=== PATIENT | male | born 1940 | race Caucasian/White ===

== ENCOUNTER → 2019-03-31 14:24 | Outpatient (CLI) | payer MEDICARE, SELFPAY ==
--- NOTE | 2019-03-31 | DI.CT.S_ITS ---
PROCEDURE: CT ABDOMEN WO/W CON INDICATIONS: Personal history of malignant neoplasm of bladder TECHNIQUE: Optional 5 mm thick noncontrast images acquired from the diaphragm to the iliac crests. After the administration of intravenous contrast, 5 mm thick images again acquired from the diaphragm to the iliac crests in the arterial and urographic phases. 5 mm thick coronal and sagittal reformats were then acquired. For radiation dose reduction, the following was used: automated exposure control, adjustment of mA and/or kV according to patient size. COMPARISON: None. FINDINGS: Image quality: Excellent. Lung bases: Lung bases are clear. Heart size is normal. Genitourinary: Kidneys demonstrate normal size and overall enhancement. An exophytic renal cyst is present off the lower pole the right kidney. No suspicious hypervascular renal mass lesions. No hydronephrosis or nephrolithiasis. No abnormal filling defects within the visualized portions of the renal collecting systems. Other solid organs: Liver is normal in size and enhancement. Simple hepatic cystic lesions are present within the right hepatic lobe. Gallbladder is mildly contracted. Biliary system is non dilated. Pancreas enhances normally. Spleen is normal in size and enhancement. No adrenal nodules. Peritoneum and bowel: Unenhanced bowel loops are normal in wall thickness and caliber. No free fluid or air. Nodes and vessels: No retroperitoneal or mesenteric adenopathy by size criteria. Aorta and inferior vena cava are normal in caliber. Scattered atheromatous calcifications are present within the abdominal aorta. Bones: No suspicious bony lesions. No vertebral body compression fractures. Degenerative changes are present within the thoracolumbar spine. Miscellaneous: No ventral hernias. IMPRESSION: 1. No suspicious renal mass lesions. Dictated by: Maria C Curran M.D. on 03/31/2019 at 17:23 Approved by: Maria C Curran M.D. on 03/31/2019 at 17:26
== END ==
PROVIDERS: Visit Provider Urology
DX: Z85.51 Personal history of malignant neoplasm of bladder (principal)
CPT/HCPCS: 74170; Q9967

== ENCOUNTER → 2022-06-17 13:31 | Outpatient (CLI) | payer MEDICARE, SELFPAY ==
--- NOTE | 2022-06-17 | DI.ECHO.S_ITS ---
[facility]---------+ [facility] +---------+ : : [address] : : : : [place] : : : : [id number] : : : : Phone: [phone]---------+ Echocardiogram Report + + :Name: MOO MCKEON Study Date: 06/17/2022 Height: 72 in : :[facility] ReadingLocation: Weight: 217 lb : : Gender: Male BSA: 2.2 m2 : :: 1940 Age: 82 yrs BP: 148/83 mmHg: :Reason For Study: CARDIAC MURMUR : :Ordering Physician: MIGNON, : :ROSEMARY Escobar Performed By: Ashley Maki : :Referring: ROSEMARY CROW : + + Interpretation Summary The left ventricle is mildly dilated. Left ventricular systolic function is mildly reduced. The ejection fraction is estimated to be 40-45%. There is mild global hypokinesis of the left ventricle. Diastolic parameters suggest a relaxation abnormality of the left ventricle, consistent with probable normal filling pressures. The right ventricle is normal in size and function. The right ventricular systolic pressure is estimated to be at least 30 mmHg based on an estimated right atrial pressure of 3 mm Hg. The left atrial size is normal. Right atrial size is normal. There is mild mitral regurgitation. There is mild aortic stenosis. The calculated aortic valve area is 1.5 cm2. The peak aortic velocity is 2.5 m/sec. There is no other significant valvular heart disease. The aortic root is mildly dilated. The ascending aorta is moderately enlarged. Procedure: A two-dimensional transthoracic echocardiogram with color flow and Doppler was performed. The study quality was technically adequate. There is no prior echocardiogram noted for this patient. The patient was in sinus rhythm with heart rates between 74-90 bpm during the exam. Left Ventricle: The left ventricle is mildly dilated. There is mild-moderate concentric left ventricular hypertrophy. Left ventricular systolic function is mildly reduced. The ejection fraction is estimated to be 40-45%. There is mild global hypokinesis of the left ventricle. Diastolic parameters suggest a relaxation abnormality of the left ventricle, consistent with probable normal filling pressures. Right Ventricle: The right ventricle is normal in size and function. Atria: The left atrial size is normal. Right atrial size is normal. There is no Doppler evidence for an interatrial shunt. Mitral Valve: The mitral valve is normal in structure and function. There is mild mitral annular calcification. There is mild mitral regurgitation. Aortic Valve: The aortic valve is not well visualized. The aortic valve is moderately calcified. There is moderately reduced leaflet mobility. There is mild aortic stenosis. The peak aortic velocity is 2.5 m/sec. The aortic valve mean gradient is 15 mmHg. The calculated aortic valve area is 1.5 cm2. No aortic regurgitation is present. Tricuspid Valve: The tricuspid valve is normal in structure and function. There is mild tricuspid regurgitation. The right ventricular systolic pressure is estimated to be at least 30 mmHg based on an estimated right atrial pressure of 3 mm Hg. Pulmonic Valve: The pulmonic valve is not well visualized. There is no pulmonic valvular regurgitation. There is no other significant valvular heart disease. Great Vessels: The aortic root is mildly dilated. The ascending aorta is moderately enlarged. The IVC is of normal diameter and collapses greater than 50% with a sniff. This suggests a low right atrial pressure of 3 mm Hg. Pericardium/ Pleura There is no pericardial effusion. There is no pleural effusion. MMode/2D Measurements & Calculations LVIDd: 6.3 cm LVOT diam: 2.8 cm LVIDs: 5.0 cm Ao root diam: 4.2 cm FS: 21.3 % asc Aorta Diam: 4.4 cm IVSd: 1.4 cm Ao Arch Diam (Prox Trans): 3.2 cm LVPWd: 1.4 cm LV escobar. diameter/BSA (cm/m^2): 2.9 LV sys. diameter/BSA (cm/m^2): 2.3 LA A2 area: 23.9 cm2 RA long axis: 5.3 cm LA A4 area: 16.6 cm2 RA area: 16.6 cm2 LA length (vol): 5.2 cm RA vol: 44.4 ml LA vol: 64.7 ml RA : 20.1 ml/m2 LA vol index: 29.3 ml/m2 IVC diam: 2.0 cm RVD1 (basal): 3.5 cm RVD2 (mid): 2.9 cm TAPSE: 2.0 cm Doppler Measurements & Calculations Ao V2 max: 250.8 cm/sec LVOT Max Jassi: 61.8 cm/sec Ao V2 mean: 177.2 cm/sec LV V1 max P.5 mmHg Ao max P.6 mmHg LV V1 VTI: 13.7 cm Ao mean P.8 mmHg ARVIND(I,D): 1.5 cm2 Ao V2 VTI: 54.2 cm ARVIND(V,D): 1.5 cm2 sev ratio: 0.25 ARVIND indexed to BSA (cm^2/m^2): 0.68 MV E max jassi: 54.9 cm/sec TR max jassi: 261.2 cm/sec MV A max jassi: 111.9 cm/sec TR max P.3 mmHg MV E/A: 0.49 PA V2 max: 96.0 cm/sec Med Peak E' Jassi: 4.9 cm/sec PA V2 mean: 68.3 cm/sec E/E' med: 11.2 PA mean P.1 mmHg Lat Peak E' Jassi: 7.3 cm/sec E/E' lat: 7.5 E/e' average: 9.4 MV dec time: 0.24 sec SV(LVOT): 81.8 ml Reading Physician:06:14 PM
[2022-06-17 15:23] LABS: COVID19 -Nasal RAPID Negative (Negative)
--- NOTE | 2022-06-17 20:38 | DI.NM.S_ITS ---
DATE OF SERVICE: 06/17/2022 PROCEDURE PERFORMED: Exercise treadmill stress test without imaging. ORDERING PROVIDER: JOEL Vu. INDICATIONS: The patient is an 82-year-old male with fatigue and a diastolic murmur. EXERCISE TREADMILL TESTIN. The patient was able to exercise for 6 minutes, 7 seconds on a standard Edwin protocol, suggesting good exercise capacity with an BIANCA of -22%, achieving 7.0 METs. 2. He had a normal heart rate and blood pressure response to exercise, achieving a maximum heart rate of 146 BPM (105% of his predicted maximum). 3. He had no chest discomfort or other anginal symptoms. 4. His resting ECG shows sinus rhythm with occasional PVCs and a left anterior fascicular block. With exercise, there were no significant ST-segment shifts. With stress, there continued to be occasional PVCs, rarely in couplets, but generally improved with stress. IMPRESSION: 1. Normal exercise treadmill study for ischemia. 2. Very good exercise capacity without angina. He had occasional PVCs, rarely in couplets with exercise that improved with stress. He has an underlying left anterior fascicular block on his resting electrocardiogram. Jj Burdick - Sariah/[place] doc#: [id number]/job#: [id number] dd: 06/17/2022 16:39:00 dt: 06/17/2022 19:21:00 DICTATING /COPIES TO: José Luis Varma MD COPIES MNE: CLEO
== END ==
PROVIDERS: Radiology Diagnostic Radiology; Referring Provider Nurse Practitioner Family; Visit Provider Nurse Practitioner Family
DX: I08.3 Combined rheumatic disorders of mitral, aortic and tricuspid valves (principal); I77.810 Thoracic aortic ectasia; R07.9 Chest pain, unspecified; R01.1 Cardiac murmur, unspecified; R53.83 Other fatigue; Z20.822 Contact with and (suspected) exposure to COVID-19
CPT/HCPCS: 87635; 93017; 93306